=== PATIENT | female | born 1985 | race Caucasian/White ===

== ENCOUNTER 2019-03-25 23:41 | Inpatient (IN) ==
[2019-03-26] MEDS ORDERED: OXYTOCIN 30 UNITS/500 ML BAG IV PRN ×2 (00:12→07:02)
[2019-03-26] MEDS ORDERED: LACTATED RINGER'S 1,000 ML IV PRN (00:12)
[2019-03-26] MEDS ORDERED: PENICILLIN G POTASSIUM 3 MU in DEXTROSE 5% 100 ML IV PRN (00:12)
[2019-03-26] MEDS ORDERED: PENICILLIN G POTASSIUM 6 MU in DEXTROSE 5% 250 ML IV STA (00:12)
[2019-03-26 00:29] LABS: Hematocrit (blood only) 39.3 % (37-47); Hemoglobin 13.7 g/dL (12.0-16.0); Mean Corpuscular Volume 89.9 fL (80-100); Platelet Count 186 K/uL (130-400); RDW Coefficient of Variation 12.6 % (11.5-14.5); RDW Standard Deviation 41.2 fL (36.4-46.3); Red Blood Count 4.37 M/uL (4.2-5.4)
[2019-03-26 00:31] LABS: Mean Corpuscular Hgb Conc 34.9 g/dL (32-36)
--- NOTE | 2019-03-26 06:15 | Procedure Note ---
Vaginal Delivery Summary Date of Service March 26, 2019 Spontaneous vaginal delivery unmedicated patient delivered in occiput anterior position over a second-degree tear mouth and the nares were suctioned there was a loose nuchal cord passed over the head x1 baby was delivered by gentle traction no excessive force used live vigorous cord clamped and cut cord gases obtained cord blood obtained placenta removed with gentle traction local anesthetic injected into the tear site where she had a second-degree tear this was repaired with 3-0 Vicryl estimated blood loss 150 mL sponge and instrument counts were correct rectal exam negative for sutures or defects
--- NOTE | 2019-03-26 06:47 | Procedure Note ---
Vaginal Delivery Summary Date of Service March 26, 2019 Spontaneous vaginal delivery patient had arrived as a and initially presented at 4 cm then she began to have heavier vaginal bleeding at that time AROM was performed. Fluid was clear as although a few bloody clots were then passed in the heart rate tracing was category 1 and then progressed to category 2 with variable type decelerations on contraction she rapidly progressed to fully dilated and pushed over a few contractions delivering a live vigorous infant head was delivered first mouth nares suctioned fluid was clearish no excessive force live vigorous infant cord clamped and cut cord gases obtained cord blood obtained placenta removed with gentle traction internal exam of the uterus revealed a previous section scar that was intact. Second-degree tear repaired with 3-0 Vicryl sponge and instrument counts correct estimate blood loss 250 mL rectal exam negative for sutures or defects
--- NOTE | 2019-03-26 06:50 | Procedure Note ---
Vaginal Delivery Summary Date of Service March 26, 2019 Please ignore the recently dictated document this was dictated in the wrong chart in error
[2019-03-26] MEDS ORDERED: SUPERCREAM 0.870% 15 GM JAR EXT PRN (07:02)
[2019-03-26] MEDS ORDERED: DIPHTHERIA/TETANUS/PERTUSSIS 0.5 ML SYR/VIAL IM ONE (07:02)
[2019-03-26] MEDS ORDERED: BENZOCAINE 20% AER SPR 82.5 GM CAN EXT PRN (07:02)
[2019-03-26] MEDS ORDERED: IBUPROFEN 600 MG TAB PO PRN (07:02)
[2019-03-26] MEDS ORDERED: ACETAMINOPHEN 325 MG TAB PO PRN (07:02)
[2019-03-26] MEDS ORDERED: HYDROCORTISONE ACETATE 25 MG SUPP PR PRN (07:02)
[2019-03-26 07:21] LABS: Base Excess Cord Venous Blood -7.2 mEq/L (-7.7-1.9); Cord Venous Blood HCO3 19 mmol/L (18.4-26.8); Cord Venous Blood PCO2 43 mmHg (30.4-57.2); Cord Venous Blood PO2 27 mmHg (14.1-43.3); Cord Venous Blood pH 7.27 (7.20-7.44)
[2019-03-26 07:26] LABS: Base Excess Cord Arterial Bld -7.7 mEq/L (-9-1.8); CO2 Cord Arterial Blood 42 mmHg (39.1-73.5); HCO3 Cord Arterial Blood 19 mmol/L (19.7-28.5); pH Cord Arterial Blood 7.27 (7.1-7.38)
[2019-03-26] MEDS ORDERED: NON-FORMULARY MEDICATION (Pnv Cmb#95-Ferrous Fumarate-Fa [Prenatal] 1 TAB) PO SCH (09:00)
[2019-03-26] MEDS: DOCUSATE SODIUM 100 MG CAP PO SCH (20:54)
[2019-03-27 07:26] LABS: Hematocrit (blood only) 34.2 % (37-47); Hemoglobin 11.7 g/dL (12.0-16.0); Mean Corpuscular Hgb Conc 34.2 g/dL (32-36); Mean Corpuscular Volume 91.4 fL (80-100); Platelet Count 169 K/uL (130-400); RDW Coefficient of Variation 13.1 % (11.5-14.5); RDW Standard Deviation 43.3 fL (36.4-46.3); Red Blood Count 3.74 M/uL (4.2-5.4); White Blood Count 12.16 K/uL (4.8-10.8)
--- NOTE | 2019-03-27 07:32 | Obstetrical Progress Note ---
Date of Service <Dick Valverde MD - Last Filed: 03/27/19 07:38> March 27, 2019 Assessment & Plan <Dick Valverde MD - Last Filed: 03/27/19 07:38> (1) (spontaneous vaginal delivery): 33 year old day 1 s/p at 38 weeks and 4 days * Vital Signs Reviewed and WNL * Blood type A+ GBS+, Rubella immune * Pain well controlled * Hemoglobin 11.7 this morning * Encouraged patient to continue to ambulate and work on breast feeding today Subjective <Dick Valverde MD - Last Filed: 03/27/19 07:38> Ambulation: ambulating normally Voiding: no voiding problems Passing Gas:: Yes Diet Tolerance:: regular diet Lochia:: Small Feeding Type:: breast feeding Current Pain Level(1-10): 0 Ms Noriega is doing very well, she has no questions or complaints at this time. Her goals are to return home after breakfast on Friday morning if everything goes well. Constitutional: no fever and no chills Respiratory: no cough and no dyspnea Cardiovascular: no chest pain, no dyspnea and no calf pain Gastrointestinal: no nausea and no vomiting Physical Exam <Dick Valverde MD - Last Filed: 03/27/19 07:38> Vital Signs (Past 24 Hours) Last Vital Signs Temp 36.5 C 03/27/19 05:00 Pulse 61 03/27/19 05:00 Resp 18 03/27/19 05:00 BP 107/71 03/27/19 05:00 Pulse Ox 96 03/26/19 09:29 Constitutional well developed, well nourished, cooperative and comfortable; no acute distress Respiratory normal respiratory effort, lungs clear to auscultation Cardiovascular Rate/Rhythm: regular rate and regular rhythm Heart Sounds: no click, no gallop, no murmur and no cardiac rub Extremities: no calf tenderness Gastrointestinal (Abdomen) Percussion/Palpation: abdomen soft (Around uterus); abdomen nontender Genitourinary OB Exam Abdomen: + fundal height (Uterus firm nontender 1 cm below umbilicus) <Matias Petit MD - Last Filed: 03/31/19 13:11> Co-Signing Physician Notes Patient seen and evaluated and agree with the above findings and plan Resident Activity Tracking <Dick Valverde MD - Last Filed: 03/27/19 07:38> Resident Involvement: Resident Care Provided Care Provided: OB Delivery
[2019-03-27] MEDS: PRENATAL VITAMIN 1 TAB PO SCH ×2 (09:19→09:50)
[2019-03-27] MEDS: DOCUSATE SODIUM 100 MG CAP PO SCH ×4 (09:20→21:00)
[2019-03-27] MEDS ORDERED: BISACODYL 5 MG TABEC PO SCH (20:00)
[2019-03-28] MEDS ORDERED: BISACODYL 10 MG SUPP PR PRN (07:00)
[2019-03-28 07:36] LABS: Hematocrit (blood only) 35.1 % (37-47); Hemoglobin 11.9 g/dL (12.0-16.0)
--- NOTE | 2019-03-28 07:42 | Obstetrical Progress Note ---
Date of Service March 28, 2019 Assessment & Plan (1) (spontaneous vaginal delivery): Ready for discharge, instructions reviewed. Present on Admission?: Yes Subjective Ambulation: ambulating normally Voiding: no voiding problems Passing Gas:: Yes Diet Tolerance:: regular diet Lochia:: Small Feeding Type:: breast feeding Current Pain Level(1-10): 0 Respiratory: no cough and no dyspnea Cardiovascular: no chest pain Breast: no problem reported Gastrointestinal: no nausea and no vomiting Genitourinary (male): no difficulty urinating Lochia decreasing Psychiatric: no depression Physical Exam Vital Signs (Past 24 Hours) Last Vital Signs Temp 36.8 C 03/28/19 00:10 Pulse 57 L 03/28/19 00:10 Resp 16 03/28/19 00:10 BP 107/66 03/28/19 00:10 Pulse Ox 98 03/28/19 00:10 Constitutional WD/WN, vitals as above no acute distress Respiratory normal respiratory effort and able to speak in complete sentences; no respiratory distress and does not use accessory muscles Cardiovascular Rate/Rhythm: regular rate and regular rhythm Extremities: no calf tenderness Negative Shola's Gastrointestinal (Abdomen) Post-gravid, fundus firm at umbilicus Psychiatric Affect: euthymic affect Genitourinary Speculum/Bimanual Exam: uterus nontender
[2019-03-28] MEDS: PRENATAL VITAMIN 1 TAB PO SCH (09:20)
[2019-03-28] MEDS: DOCUSATE SODIUM 100 MG CAP PO SCH (09:20)
== END 2019-03-28 13:18 | disposition home or self-care (01) | DRG 807 ==
LOC: OPB 23:41 → 4S1 23:42 → 4S2 03-26 09:00
DX: Z37.0 Single live birth; O69.81X0 Labor and delivery complicated by cord around neck, without compression, not applicable or unspecified; Z3A.38 38 weeks gestation of pregnancy; O70.1 Second degree perineal laceration during delivery

== ENCOUNTER 2024-02-25 14:02 | Inpatient (IN) ==
[2024-02-25] MEDS ORDERED: LACTATED RINGER'S 1,000 ML IV PRN (14:17)
[2024-02-25] MEDS ORDERED: OXYTOCIN 30 UNITS/NSS 30 UNITS/500 ML BAG IV PRN (14:17)
--- NOTE | 2024-02-25 14:20 | History & Physical Report ---
Date of Service February 25, 2024 Assessment & Plan (1) Supervision of elderly multigravida: (2) Normal labor: Plan admit, iv, labs. declines pain mgmt. anticip soon. fhts categ 1. History of Present Illness Chief Complaint: regular ctx, rom at 1250 Primary Care Provider: Eleazar Wall MD 38yo at 38+wks juan presents to LD with cc of srom, labor. She notes was at her routine appt this am. Then at 1250 had srom clear fluid and came to LD and notes regular ctx Gross srom noted. PNC c/b 1. ama PNL rh pos, ri, gbs neg OBH: x 1 GYNH: nl paps no stds. Allergies Allergy/AdvReac Type Severity Reaction Status Date / Time No Known Drug Allergies Allergy Verified 02/25/24 08:38 Home Medications Medication Instructions Recorded Confirmed Type prenat.vits,sterling,jpb-flha-cjebx 1 tab PO DAILY 02/25/24 02/25/24 History Patient History Medical History Anemia (spontaneous vaginal delivery) Surgical History [place] teeth removed Family History Mother Kidney stone Depression Grandfather (Maternal) Parkinson disease Grandmother (Maternal) Parkinson disease Father Alcohol abuse Brother Asthma Denies family history of Ovarian cancer Prostate cancer Myocardial infarction Breast cancer Colorectal cancer Social History (Updated 07/31/23 @ 10:51 by Sobeida Tomlin) Smoking Status: Never smoker Second Hand Exposure: No; Do You Dip or Chew Tobacco: No; Hx Alcohol Use: No Hx Substance Use: No Preferred Language: German Communication Ability: Effective Visual Impairment: No Limitations Hearing Ability: Normal Puff Ironer Required: No Beliefs That Will Affect Care: None marital status: marital status details: Doug (35) [phone] Current Living Situation: Family Current Living Situation Comment: Lives at home with and one child, [place] -4 current occupational status: employed current occupation: textile worker Other Information That Helps Us Care for You: No Feels Safe at Home: Yes Childhood Exposure to Second-Hand Smoke: No Dental Care, Regularly: Yes Physical Activity Frequency: 5-6 Times per Week Seatbelt Use: always Sunscreen Use: Yes Assistive Devices: None Review of Systems as per Subjective / HPI Physical Exam Constitutional: WD/WN, vitals as above Respiratory: normal respiratory effort, lungs clear to auscultation Cardiovascular: Rate/Rhythm: regular rate and regular rhythm Gastrointestinal (Abdomen): soft gravid nt Musculoskeletal: no edema nontender calves Neurologic: grossly normal Psychiatric: A+Ox3, euthymic affect Genitourinary: Manual OB Exam: + cervical dilation 7 cm, + cervical effacement 100% and + station 0 OB Exam Monitor Tracing: + external FHT monitor used, + external uterine monitor used (q2), + category I and + normal FHT variability Results & Data Vital Signs (Past 12 Hours) Vital Signs Pulse BP 02/25/24 14:07 68 97/59 L Coding Level of Care Code None Diagnoses Supervision of elderly multigravida O09.529 Normal labor O80; Z37.9
[2024-02-25 14:51] LABS: Hematocrit (blood only) 39.8 % (37.0-47.0); Hemoglobin 13.3 g/dl (12.0-16.0); Mean Corpuscular Hgb Conc 33.4 g/dL (32.0-36.0); Mean Corpuscular Volume 92.8 fL (80.0-100.0); Mean Platelet Volume 11.2 fL (9.4-12.4); Platelet Count 211 K/uL (130-400); RDW Coefficient of Variation 12.8 % (11.5-14.5); Red Blood Count 4.29 M/uL (4.20-5.40); White Blood Count 13.92 K/ul (4.8-10.8)
[2024-02-25] MEDS: OXYTOCIN 30 UNITS/NSS 30 UNITS/500 ML BAG IV PRN (15:46)
--- NOTE | 2024-02-25 15:56 | Delivery Summary ---
Vaginal Delivery Summary Date of Service February 25, 2024 Vaginal Delivery Summary and 2nd Degree LAC The patient dilated to complete and pushed to deliver a viable female Apgars 8 and 9 via over 2nd degree perineal laceration. Mouth and nose bulb suctioned at perineum. Shoulders and body delivered with ease. Infant was vigorous and crying at . Cord clamped at 30 seconds of life and to maternal abdomen where the cord was then doubly clamped and cut. Placenta delivered spontaneously and intact, three-vessel cord. Hemostasis achieved with dilute pitocin and uterine massage. Local lidocaine 1% injected for anesthesia and laceration repaired in routine fashion with 3-0 vicryl. Cervix and sulci intact. QBL 55cc. Mother and baby stable in recovery. [facility] Vaginal Delivery Charge Delivery Type Details: and 2nd Degree LAC
[2024-02-25] MEDS ORDERED: bisacodyL 10 MG SUPP PR PRN (16:22)
[2024-02-25] MEDS ORDERED: HYDROCORTISONE ACETATE 25 MG SUPP PR PRN (16:22)
[2024-02-25] MEDS ORDERED: DIPHTHER/TETAN/PERTUS Vaccine (Tdap, Adol/Adult) 0.5mL IM ONE (16:22)
[2024-02-25] MEDS ORDERED: ACETAMINOPHEN 325 MG TAB PO PRN (16:22)
[2024-02-25] MEDS ORDERED: oxyCODONE/ACETAMINOPHEN 5mg/325mg TAB PO PRN (16:22)
[2024-02-25] MEDS ORDERED: BENZOCAINE 20% SPRY 85 APPLN/85 GM CAN EXT PRN (16:22)
[2024-02-25] MEDS: OXYTOCIN 20 UNITS/LR 1,002 ML IV SCH (16:44)
[2024-02-25] MEDS: IBUPROFEN 600 MG TAB PO PRN (16:49)
[2024-02-25] MEDS: LIDOCAINE 1% LOCAL 20 ML VIAL INFIL PRN (17:14)
[2024-02-25] MEDS: DOCUSATE SODIUM 100 MG CAP PO SCH (20:07)
--- NOTE | 2024-02-26 06:42 | Obstetrical Progress Note ---
Date of Service February 26, 2024 Assessment & Plan (1) care following vaginal delivery: Plan: Doing well Encourage ambulation Pain control Routine post care dc today Admission and Anticipated Discharge Date Admission Date: February 25, 2024 Supervising Physician Co-Signing Physician Notes Resident Physician Supervision Note: I was present with Dr. Espino during the history and exam. I discussed the case with the resident and agree with the findings and plan as documented in the note. Any exceptions or clarifications are listed here: stable doing well, eating, voiding, ambulating, abd soft ff 2 down nt, ext nt calves. ppd#1, s/p , plans dc home later today, instructions reviewed. f/u 6wks pp check. Documented By: Aaliyah Whitaker MD, FACOG Subjective 38 yo post day 1 s/p Ambulation: ambulating normally Voiding: no voiding problems Passing Gas:: Yes Diet Tolerance:: regular diet Lochia:: Small Feeding Type:: breast feeding Current Pain Level: minimal Resting comfortably this AM in NAD. Denies BROWN, CP, SOB, N/V/D, LE pain/swelling. Desires dc today Review of Systems Review of Systems: reviewed, per HPI Physical Exam Physical Exam: General: patient resting comfortably, NAD, non-toxic in appearance, answers questions appropriately. Skin: warm, dry, intact HEENT: NC/AT, anicteric sclera, conjunctiva without injection, moist mucus membranes. Heart: +S1/S2, regular, no m/r/g Lungs: equal air entry bilaterally, no rales/rhonchi/wheezes Abd: +BS, soft, NT/ND, uterine fundus firm at umbilicus. Ext: warm, no clubbing/cyanosis or edema, Shola's neg. Neuro: nonfocal, speech intact, no facial droop, moving all extremities. Results & Data Vital Signs (Past 12 Hours) Vital Signs Temp Pulse Resp BP Pulse Ox O2 Del Method 02/26/24 03:20 36.5 C 63 18 97/64 L 02/25/24 23:35 36.6 C 60 18 105/68 02/25/24 19:35 36.4 C L 73 18 97/64 L 99 Room Air Resident Activity Tracking Resident Involvement: Resident Care Provided Care Provided: Adult [facility]
[2024-02-26] MEDS: PRENATAL VITAMIN 1 TAB PO SCH (08:31)
== END 2024-02-26 17:10 | disposition home or self-care (01) | DRG 807 ==
LOC: OPB 14:02 → 4S1 14:04 → 4E2 18:25